=== PATIENT | male | born 1990 | race Caucasian/White ===

== ENCOUNTER 2016-09-30 14:30 | Emergency (ER) ==
[2016-09-30 14:31] VITALS: BMI 26.4
[2016-09-30 14:33] VITALS: BP 160/97; TEMP 96.8
--- NOTE | 2016-09-30 15:00 | ED.PDOC ---
General ED Provider: Dr. RICARDO GUERRA JR Chief Complaint: Neck Pain Non-Injury Stated Complaint: woke with pain in neck@ 0900 posterior neck base of head; left neck pain states tender bilaterally and medial along spine on exam 96.8 69 20 96 160/97 03/18 aspirin,4; 4 hours ago Time Seen by Physician: 15:00 Mode of Arrival: Walk-In Information Source: Patient Exam Limitations: No limitations Nursing and Triage Documentation Reviewed and Agree: No Review of Systems - Review Of Systems Constitutional: Reports: Malaise Eyes: Reports: No symptoms Ears, Nose, Mouth, Throat: Reports: No symptoms Respiratory: Reports: No symptoms Cardiac: Reports: No symptoms GI: Reports: No symptoms : Reports: No symptoms Musculoskeletal: Reports: Muscle pain, Neck pain Skin: Reports: No symptoms Neurological: Reports: No symptoms Endocrine: Reports: No symptoms Hematologic/Lymphatic: Reports: No symptoms All Other Systems: Other Past Medical History - Past Medical History Previously Healthy: Yes Endocrine: Reports: None Cardiovascular: Reports: None Respiratory: Reports: None Hematological: Reports: None Gastrointestinal: Reports: None Genitourinary: Reports: None Neuro/Psych: Reports: Migraine, Anxiety, Depression Musculoskeletal: Reports: None Cancer: Reports: None - Surgical History General Surgical History: Reports: None - Family History Family History: Reports: None - Social History Smoking Status: Current every day smoker, Heavy tobacco smoker Hx Substance Use: No Alcohol Screening: Occasionally Physical Exam - Physical Exam Appearance: Ill-appearing Pain Distress: Moderate Eyes: DOUG, EOMI, Conjunctiva clear ENT: Ears normal, Nose normal, Oropharynx normal Neck: Supple Respiratory: Airway patent, Breath sounds clear, Breath sounds equal, Respirations nonlabored Cardiovascular: RRR, Pulses normal, No rub, No murmur GI/: Soft, Nontender, No masses, Bowel sounds normal, No Organomegaly Musculoskeletal: Normal strength, ROM intact, No edema, No calf tenderness Skin: Warm, Dry, Normal color Neurological: Sensation intact, Motor intact, Reflexes intact, Cranial nerves intact, Alert, Oriented Psychiatric: Anxious Interpretation - Radiology Interpretation Radiology Interpretation By: Radiologist Radiology Results: Negative Exam Interpreted: CT Scan (neck-nte facial lesions with possible celluitis are ingrown hairs left face inferior to mandible) Physician Notification - Case Discussed Physician Notified: theo Kaur I spoke with Dr Dunham not Dr Todd Time of Notification: 16:35 Physician Notified: DR STEVEN CALLS BACK - WILL SEEIN OFFICE INMORNING IRRIGATE AND CLOSE- 09:00 Time of Notification: 16:55 Critical Care Note - Critical Care Note Total Time (mins): 0 Course - Course Orders, Labs, Meds: Orders Category Date Time Status Naproxen [Naprosyn] MEDS 09/30/16 15:04 Discontinued 500 mg PO ONCE STA CT CERVICAL SPINE W/O CONTRAST Stat RADS 09/30/16 15:03 Completed Medications Discontinued Medications Generic Name Dose Route Start Last Admin Trade Name Freq PRN Reason Stop Dose Admin Naproxen 500 mg 09/30/16 15:04 09/30/16 15:33 Naprosyn PO 09/30/16 15:05 500 mg ONCE STA Administration Vital Signs: Temp Pulse Resp BP Pulse Ox 09/30/16 14:31 96.8 F L 69 20 160/97 H 96 Departure - Departure Time of Disposition: 16:16 Disposition: HOME SELF-CARE Discharge Problem: Neck pain Instructions: Acute Neck Pain (ED) Condition: Good Pt referred to PMD for follow-up: Yes Additional Instructions: recommend recheck PMD one week to two weeks may follow with [facility] NSAIDS for pain recommend Naprosyn for pain (may try Aleve 2 tabs twice a day as a substitute) ice to sore area of neck three times a day for 20 minutes for facial ingrown hairs recommend warm soaks 4-5 times a day for 10 minutes return if pain worsening if mental changes or if fever Prescriptions: Naproxen [Naprosyn] 500 mg PO Q12HR PRN #30 tablet PRN Reason: PAIN Allergies/Adverse Reactions: Allergies Penicillins Adverse Reaction (Verified 09/30/16 14:34) BREAKS OUT Home Medications: Ambulatory Orders Naproxen [Naprosyn] 500 mg PO Q12HR PRN #30 tablet 09/30/16
[2016-09-30] MEDS ORDERED: NAPROSYN PO STA (15:04)
--- NOTE | 2016-09-30 15:53 | CT ---
EXAM: CT cervical spine without contrast. HISTORY: Neck pain with no injury COMPARISON: None TECHNIQUE: Serial axial images of the cervical spine were obtained from the skull base through the lung apices without contrast. These were viewed in multiple planes. FINDINGS: Vertebral bodies demonstrate normal height, disc space and alignment. The facets and pos terior processes are normal. There is no acute compression fracture or subluxation. The odontoid p rocess is unremarkable. The C1 ring is intact. There is no central or neural foraminal narrowing id entified. There is a subcutaneous low attenuation collection in the left lower mandible measuring 1.1 cm in d iameter on axial image 63. There is mild skin thickening and inflammatory stranding involving the l eft lateral subcutaneous soft tissues. There is adjacent scattered lymph nodes. There is an additi onal central low attenuation lesion in the subcutaneous fat in the left facial structures measuring 1.0 x 1.2 cm. Limited views of the soft tissues demonstrate mild paranasal sinus mucosal thickening. IMPRESSION: 1. No acute osseous abnormality of the cervical spine and no visualized central or neural foraminal narrowing. 2. Focal area of subcutaneous ground-glass in the inferior lateral left mandibular soft tissues wit h scattered lymphadenopathy and is most consistent with cellulitis/infection. The additional subcut aneous low attenuation lesions described above are of unknown etiology and may represent sebaceous c yst versus infected collections. Recommend focal physical exam to further evaluate.
== END 2016-09-30 16:31 | disposition home or self-care (01) ==
LOC: ED 14:30
DX: M54.2 Cervicalgia (principal); L73.1 Pseudofolliculitis barbae; F17.210 Nicotine dependence, cigarettes, uncomplicated
CPT/HCPCS: 99283